=== PATIENT | female | born 1970 | race Caucasian/White ===

== ENCOUNTER 2016-12-11 12:07 | Inpatient (IN) | payer OTHER ==
[2016-12-11 14:04] VITALS: BMI 27.4
--- NOTE | 2016-12-11 14:55 | HP ---
COWS - Scale Resting Pulse: 0= [place] 80 or Below Sweatin= Chills/Flushing Restless Observation: 1= Difficult to Sit Still Pupil Size: 1= Pupils >than Normal Bone or Joint Aches: 2= Severe Diffuse Aches Runny Nose/ Eye Tearin= Nasal Congestion GI Upset > 30mins: 1= Stomach Cramp Tremor Observation: 1= Tremor [place], Not Seen Yawning Observation: 0= None Anxiety or Irritability: 2=Irritable/Anxious Goose Flesh Skin: 0=Smooth Skin COWS Score: 10 Admission ROS S - HPI Chief Complaint: I need help to stop using heroin Allergies/Adverse Reactions: Allergies Allergy/AdvReac Type Severity Reaction Status Date / Time ketorolac tromethamine Allergy Itching Verified 08/07/16 16:55 [From Toradol] celecoxib [From Celebrex] AdvReac Vomiting Verified 08/07/16 17:14 History of Present Illness: 46 y/o f pt with a h/o heroin dep. seeking detox. Exam Limitations: No Limitations - Ebola screening Have you traveled outside of the country in the last 21 days: No Have you had contact with anyone from an Ebola affected area: No Have you been sick,other than usual withdrawal symptoms: No Do you have a fever: No - Review of Systems Constitutional: No Symptoms Reported EENT: reports: Other (needs corrective lenses) Respiratory: reports: No Symptoms reported Cardiac: reports: No Symptoms Reported GI: reports: Nausea, Indigestion, Abdominal cramping : reports: No Symptoms Reported Musculoskeletal: reports: Back Pain Integumentary: reports: No Symptoms Reported Neuro: reports: No Symptoms reported Endocrine: reports: Other (told she had thyroid disease ? hypothyroidism) Hematology: reports: No Symptoms Reported Psychiatric: reports: Agitated, Anxious, Depressed Other Systems: Reviewed and Negative Patient History - Patient Medical History Hx Anemia: No Hx Asthma: No Hx Chronic Obstructive Pulmonary Disease (COPD): No Hx Cancer: No Hx Cardiac Disorders: No Hx Congestive Heart Failure: No Hx Hypertension: No Hx Hypercholesterolemia: No Hx Pacemaker: No HX Cerebrovascular Accident: No Hx Seizures: No Hx Dementia: No Hx Diabetes: No Hx Gastrointestinal Disorders: Yes (GERD) Hx Liver Disease: No Hx Genitourinary Disorders: No Hx Sexually Transmitted Disorders: No Hx Renal Disease (ESRD): No Hx Thyroid Disease: No Hx Human Immunodeficiency Virus (HIV): No (LAST 05/11) Hx Hepatitis C: Yes Hx Depression: Yes Hx Suicide Attempt: No Hx Bipolar Disorder: Yes Hx Schizophrenia: No Other Medical History: h/o lbp/spasms - Patient Surgical History Past Surgical History: Yes Hx Neurologic Surgery: No Hx Cataract Extraction: No Hx Cardiac Surgery: No Hx Lung Surgery: No Hx Breast Surgery: No Hx Breast Biopsy: No Hx Abdominal Surgery: No Hx Appendectomy: No Hx Cholecystectomy: No Hx Genitourinary Surgery: No Hx Section: Yes (x2) Hx Orthopedic Surgery: Yes (rt wrist CTS-surgery ) Other Surgical History: ABSCESS OF RIGHT THUMB AND RIGHT 5TH FINGER IN 2013-mrsa Anesthesia Reaction: No - PPD History Previous Implant?: Yes Documented Results: Negative w/o proof Implanted On Prior [facility] Admission?: No Date: 08/09/16 Results: 0mm PPD to be Administered?: Yes - Reproductive History Patient is a Female of Child Bearing Age (11 -55 yrs old): No Last Menstrual Period: 12/04/16 Patient : No - Smoking Cessation Smoking history: Current every day smoker Have you smoked in the past 12 months: Yes Aproximately how many cigarettes per day: 10 Cigars Per Day: 0 Hx Chewing Tobacco Use: No Initiated information on smoking cessation: Yes 'Breaking Loose' booklet given: 12/11/16 - Substance & Tx. History Hx Alcohol Use: No Hx Substance Use: Yes Substance Use Type: Heroin, Tranquilizers - Substances Abused Heroin Route: Inhalation Frequency: Daily Amount used: 3-10 bags /d Age of first use: 44 Date of Last Use: 12/10/16 Cocaine Route: Inhalation Frequency: 1-3 times last 30 days Amount used: 1 line Age of first use: 44 Date of Last Use: 12/09/16 Family Disease History - Family Disease History Family History: Denies Admission Physical Exam BHS - Vital Signs Vital Signs: Vital Signs - 24 hr 12/11/16 14:02 Temperature 97.6 F Pulse Rate 69 Respiratory 18 Rate Blood Pressure 107/78 46 y/o f pt wn/wd in nad with a h/o back spasms aox3, ambulating - Physical General Appearance: Yes: Obese, Irritable, Anxious HEENTM: Yes: EOMI, Hearing grossly Normal, Normal ENT Inspection, Normocephalic , Normal Voice, LIZETH Respiratory: Yes: Chest Non-Tender, Lungs Clear, Normal Breath Sounds, No Respiratory Distress Breast: Yes: Breast Exam Deferred Cardiology: Yes: Regular Rhythm, Regular Rate, S1, S2 Abdominal: Yes: Non Tender, Soft, Increased Bowel Sounds, Protuberent, Surgical Scar (well healed c-s scars) Genitourinary: Yes: Within Normal Limits Back: Yes: Decreased Range of Motion Musculoskeletal: Yes: Back pain, Muscle Pain Extremities: Yes: Other (well healed rt wrist and rt thumb scars) Neurological: Yes: clinical dermatologist II-XII NML intact, Fully Oriented, Alert, Motor Strength 5/5 Integumentary: Yes: Moist Lymphatic: Yes: Within Normal Limits - Diagnostic (1) Cocaine abuse Status: Chronic (2) Nicotine dependence Current Visit: Yes Status: Chronic Qualifiers: Nicotine product type: cigarettes Substance use status: uncomplicated Qualified Code(s): F17.210 - Nicotine dependence, cigarettes, uncomplicated (3) Opioid dependence with withdrawal Current Visit: Yes Status: Chronic (4) Weight loss Current Visit: Yes Status: Chronic (5) Bipolar II disorder Current Visit: Yes Status: Chronic (6) GERD (gastroesophageal reflux disease) Current Visit: Yes Status: Chronic Qualifiers: Esophagitis presence: without esophagitis Qualified Code(s): K21.9 - Gastro-esophageal reflux disease without esophagitis (7) Low back pain Current Visit: Yes Status: Chronic Qualifiers: Chronicity: chronic Back pain laterality: right Sciatica presence: with sciatica Sciatica laterality: sciatica of right side Qualified Code(s): M54.41 - Lumbago with sciatica, right side Cleared for Admission [facility] - Detox or Rehab [facility] Level of Care: Medically Managed Detox Regimen/Protocol: Methadone [facility] Breath Alcohol Content Breath Alcohol Content: 0 Urine Pregancy Test - Result Urine Test Results: Negative- NO Line Present Urine Drug Screen - Results Drug Screen Negative: No Urine Drug Screen Results: SAVANA-Cocaine, OPI-Opiates, BZO-Benzodiazepines, OXY- Oxycodone
[2016-12-11] MEDS ORDERED: diphenhydrAMINE HCL 50 MG CAPSULE PO PRN (15:19)
[2016-12-11] MEDS ORDERED: P-EPHED 60MG/TRIPROLIDI 2.5MG TABLET PO PRN (15:19)
[2016-12-11] MEDS ORDERED: MAG HYDROX/AL HYDROX/SIMETH 30 ML UNIT-DOSE CUP PO PRN (15:19)
[2016-12-11] MEDS ORDERED: MAGNESIUM HYDROX 2400MG/30ML ORAL SUSPENSION 30 ML CUP PO PRN (15:19)
[2016-12-11] MEDS ORDERED: guaiFENesin/D-METHORPHAN HB 10 ML UNIT-DOSE CUPS PO PRN (15:19)
[2016-12-11] MEDS ORDERED: ACETAMINOPHEN 325 MG TABLET (FP) PO PRN (15:19)
[2016-12-11] MEDS ORDERED: MENTHOL/PHENOL 1 EACH UD MM PRN (15:19)
[2016-12-11] MEDS ORDERED: NICOTINE POLACRILEX 4 MG GUM BC PRN (15:19)
[2016-12-11] MEDS ORDERED: IBUPROFEN 400 MG TABLET (FP) PO PRN (15:19)
[2016-12-11] MEDS ORDERED: LOPERAMIDE HCL 2 MG CAPSULE PO PRN (15:19)
[2016-12-11] MEDS ORDERED: MAGNESIUM CITRATE 300 ML BOTTLE PO PRN (15:19)
[2016-12-11] MEDS ORDERED: METHADONE HCL 10 MG TABLET (FOR DETOX USE ONLY) PO ONE ×2 (15:56→23:00)
[2016-12-11] MEDS: diazePAM 5 MG TABLET PO PRN ×2 (17:14→22:33)
[2016-12-11 19:25] LABS: URINE APPEARANCE SLCLOUDY; URINE BILIRUBIN NEGATIVE (NEGATIVE); URINE BLOOD NEGATIVE (NEGATIVE); URINE COLOR YELLOW; URINE GLUCOSE (UA) NEGATIVE (NEGATIVE); URINE KETONE NEGATIVE (NEGATIVE); URINE LEUK ESTERASE NEGATIVE (NEGATIVE); URINE NITRITE NEGATIVE (NEGATIVE); URINE PROTEIN NEGATIVE (NEGATIVE); URINE UROBILINOGEN NEGATIVE E.U./dl (0.2-1.0)
[2016-12-11] MEDS: THIAMINE HCL 100 MG TABLET (FP) PO SCH (22:29)
[2016-12-11] MEDS: CYCLOBENZAPRINE HCL 10 MG TABLET (FP) PO PRN (22:31)
--- NOTE | 2016-12-12 07:48 | CONSULT ---
[facility] Psychiatric Consult - Data Date of interview: 12/12/16 Admission source: [facility] Identifying data: This is 46 years old male with history of Bipolae Disorder, intoxicated with: Opioids, Cocaine, Xanax and Nicotine Substance Abuse History: Smoking history: Current every day smoker. Have you smoked in the past 12 months: Yes. Aproximately how many cigarettes per day: 10. Cigars Per Day: 0. Hx Chewing Tobacco Use: No. Initiated information on smoking cessation: Yes. 'Breaking Loose' booklet given: 12/11/16. - Substance & Tx. History. Hx Alcohol Use: No. Hx Substance Use: Yes. Substance Use Type : Heroin, Tranquilizers. - Substances Abused. Heroin. Route: Inhalation. Frequency: Daily. Amount used: 3-10 bags /d. Age of first use: 44. Date of Last Use: 12/10/16. Cocaine. Route: Inhalation. Frequency: 1-3 times last 30 days. Amount used: 1 line. Age of first use: 44. Date of Last Use: Medical History: GERD, LBP, Weight loss history, Both Knees arthritis history, Weight loss history Psychiatric History: Patient reports history of Bipolar Disordedr, PTSD, with no psychiatric hospitalization , reports currently stable on: Lamictal 100mg po bid. Prozac 20mg poqd. Gabapentine 400mg po tid Physical/Sexual Abuse/Trauma History: Denies Additional Comment: Lamictal 100mg po bid. Prozac 20mg poqd. Gabapentine 400mg po tid Mental Status Exam - Mental Status Exam Alert and Oriented to: Person Cognitive Function: Fair Patient Appearance: Unkempt Mood: Sad Affect: Flat Patient Behavior: Sedated Speech Pattern: Delayed Voice Loudness: Mildly Soft/Quiet Thought Process: Circumstantial, Goal Oriented Thought Disorder: Being Controlled Hallucinations: Denies Suicidal Ideation: Denies Homicidal Ideation: Denies Insight/Judgement: Fair Sleep: Difficulty falling asleep Appetite: Weight loss Muscle strength/Tone: Mild Hypotonicity Gait/Station: Shuffling Additional Comments: Lamictal 100mg po bid. Prozac 20mg poqd. Gabapentine 400mg po tid Psychiatric Findings - Problem List ([place] 1, 2,3) (1) Cocaine abuse Current Visit: Yes Status: Chronic (2) Nicotine dependence Current Visit: Yes Status: Chronic Qualifiers: Nicotine product type: cigarettes Substance use status: uncomplicated Qualified Code(s): F17.210 - Nicotine dependence, cigarettes, uncomplicated (3) Opioid dependence with withdrawal Current Visit: Yes Status: Chronic (4) Benzodiazepine dependence Current Visit: No Status: Acute (5) Substance induced mood disorder Current Visit: No Status: Acute (6) Bipolar disorder Current Visit: No Status: Chronic (7) Opioid dependence Current Visit: No Status: Chronic (8) PTSD (post-traumatic stress disorder) Current Visit: No Status: Chronic - Initial Treatment Plan Initial Treatment Plan: Lamictal 100mg po bid. Prozac 20mg poqd. Gabapentine 400mg po tid
[2016-12-12] MEDS ORDERED: GABAPENTIN 400 MG CAPSULE (FP) PO SCH (08:00)
[2016-12-12 09:33] LABS: HIV 1 & 2 AB NEGATIVE; HIV 1 AGp24 NEGATIVE
[2016-12-12] MEDS ORDERED: METHADONE HCL 10 MG TABLET (FOR DETOX USE ONLY) PO ONE (10:00)
[2016-12-12] MEDS: CYCLOBENZAPRINE HCL 10 MG TABLET (FP) PO PRN (10:11)
[2016-12-12] MEDS: PRENATAL VITAMINS W/ FOLIC ACID TABLET (FP) PO SCH (10:11)
[2016-12-12] MEDS: diazePAM 5 MG TABLET PO PRN ×3 (10:11→22:28)
[2016-12-12] MEDS: FLUoxetine HCL 20 MG CAPSULE (FP) PO SCH (10:11)
[2016-12-12] MEDS: PANTOPRAZOLE 40 MG TABLET (FP) PO SCH (10:11)
[2016-12-12] MEDS: NICOTINE 21 MG/24 HOURS TOPICAL PATCH TD SCH (10:12)
[2016-12-12] MEDS: lamoTRIgine 100 MG TABLET (FP) PO SCH ×2 (10:16→22:26)
[2016-12-12 10:18] LABS: MCH 30.6 pg (25.7-33.7); MCHC 32.8 g/dl (32.0-36.0); MEAN CELL VOLUME 93.5 fl (80-96); MEAN PLT VOLUME 9.6 fl (7.5-11.1); PLATELET COUNT 246 K/MM3 (134-434); WHITE BLOOD COUNT 6.8 K/mm3 (4.0-10.0)
[2016-12-12 10:30] LABS: ALBUMIN 3.7 g/dl (3.4-5.0); ALK PHOS 100 U/L (45-117); ANION GAP 7 (8-16); BILIRUBIN,TOTAL 0.3 mg/dL (0.2-1.0); CALCIUM 8.7 mg/dL (8.5-10.1); CO2 28 mmol/L (21-32); CREATININE 0.8 mg/dL (0.55-1.02); GLUCOSE,RANDOM 64 mg/dL (74-106); SGOT/AST 51 U/L (15-37); SGPT/ALT 31 U/L (12-78); TOT PROT 7.4 g/dl (6.4-8.2)
--- NOTE | 2016-12-12 12:28 | EKG ---
Test Reason : Blood Pressure : / mmHG Vent. Rate : 073 BPM Atrial Rate : 073 BPM P-R Int : 154 ms QRS Dur : 076 ms QT Int : 390 ms P-R-T Axes : 062 063 044 degrees QTc Int : 429 ms NORMAL SINUS RHYTHM POSSIBLE LEFT ATRIAL ENLARGEMENT BORDERLINE ECG NO PREVIOUS ECGS AVAILABLE Confirmed by RENUKA RODRIGUEZ, KARLEE ([id number]) on 12/12/2016 12:28:15 PM Referred By: Confirmed By:KARLEE GRAYSON MD
--- NOTE | 2016-12-12 14:08 | PN ---
BHS COWS - Scale Resting Pulse: 1= [place] 81-100 Sweatin=Flushed/Facial Moisture Restless Observation: 1= Difficult to Sit Still Pupil Size: 1= Pupils >than Normal Bone or Joint Aches: 2= Severe Diffuse Aches Runny Nose/ Eye Tearin= Nasal Congestion GI Upset > 30mins: 2= Nausea/Diarrhea Tremor Observation of Outstretched Hands: 1= Tremor [place], Not Seen Yawning Observation: 0= None Anxiety or Irritability: 2=Irritable/Anxious Goose Flesh Skin: 0=Smooth Skin COWS Score: 13 BHS Progress Note (SOAP) Subjective: interrupted sleep, sweats, diarrhea Objective: 12/12/16 14:07 Vital Signs Temperature 98.4 F 12/12/16 13:41 Pulse Rate 77 12/12/16 13:41 Respiratory Rate 16 12/12/16 13:41 Blood Pressure 113/76 12/12/16 13:41 O2 Sat by Pulse Oximetry (%) Laboratory Tests 12/11/16 12/11/16 12/12/16 13:00 19:00 06:00 WBC 6.8 RBC 4.34 Hgb 13.3 Hct 40.6 MCV 93.5 MCHC 32.8 RDW 15.0 Plt Count 246 MPV 9.6 Sodium Potassium Chloride Carbon Dioxide Anion Gap BUN Creatinine Creat Clearance w eGFR Random Glucose Calcium Total Bilirubin AST ALT Alkaline Phosphatase Total Protein Albumin Urine Color Yellow Urine Appearance Slcloudy Urine pH 5.0 Ur Specific [place] 1.017 Urine Protein Negative Urine Glucose (UA) Negative Urine Ketones Negative Urine Blood Negative Urine Nitrite Negative Urine Bilirubin Negative Urine Urobilinogen Negative Ur Leukocyte Esterase Negative RPR Titer HIV 1&2 Antibody Screen Negative HIV P24 Antigen Negative 12/12/16 12/12/16 06:00 06:00 WBC RBC Hgb Hct MCV MCHC RDW Plt Count MPV Sodium 138 Potassium 4.4 Chloride 103 Carbon Dioxide 28 Anion Gap 7 L BUN 11 D Creatinine 0.8 Creat Clearance w eGFR > 60 Random Glucose 64 L D Calcium 8.7 Total Bilirubin 0.3 AST 51 H D ALT 31 D Alkaline Phosphatase 100 D Total Protein 7.4 Albumin 3.7 Urine Color Urine Appearance Urine pH Ur Specific Drew Urine Protein Urine Glucose (UA) Urine Ketones Urine Blood Urine Nitrite Urine Bilirubin Urine Urobilinogen Ur Leukocyte Esterase RPR Titer Nonreactive HIV 1&2 Antibody Screen HIV P24 Antigen pt aox3 in nad ambulating Assessment: 12/12/16 14:08 withdrawlal sx's Plan: cont. detox increase fluids imodium prn.
[2016-12-12] MEDS: THIAMINE HCL 100 MG TABLET (FP) PO SCH (22:26)
[2016-12-13] MEDS: diazePAM 5 MG TABLET PO PRN ×3 (09:37→22:25)
[2016-12-13] MEDS ORDERED: METHADONE HCL 5 MG TABLET (FOR DETOX USE ONLY) PO ONE (10:00)
[2016-12-13] MEDS: PRENATAL VITAMINS W/ FOLIC ACID TABLET (FP) PO SCH (10:28)
[2016-12-13] MEDS: NICOTINE 21 MG/24 HOURS TOPICAL PATCH TD SCH (10:29)
[2016-12-13] MEDS: FLUoxetine HCL 20 MG CAPSULE (FP) PO SCH (10:29)
[2016-12-13] MEDS: PANTOPRAZOLE 40 MG TABLET (FP) PO SCH (10:29)
[2016-12-13] MEDS: lamoTRIgine 100 MG TABLET (FP) PO SCH ×2 (11:31→22:25)
--- NOTE | 2016-12-13 12:03 | PN ---
BHS COWS - Scale Resting Pulse: 0= [place] 80 or Below Sweatin=Flushed/Facial Moisture Restless Observation: 1= Difficult to Sit Still Pupil Size: 0= Normal to Room Light Bone or Joint Aches: 2= Severe Diffuse Aches Runny Nose/ Eye Tearin= Nasal Congestion GI Upset > 30mins: 0= None Tremor Observation of Outstretched Hands: 2= Slight Tremor Visible Yawning Observation: 2= >3x During Session Anxiety or Irritability: 2=Irritable/Anxious Goose Flesh Skin: 0=Smooth Skin COWS Score: 12 S Progress Note (SOAP) Subjective: chronic low back sweats interrupted slept tired irritable Objective: 12/13/16 12:02 Vital Signs Temperature 97.5 F L 12/13/16 09:19 Pulse Rate 71 12/13/16 09:19 Respiratory Rate 18 12/13/16 09:19 Blood Pressure 126/82 12/13/16 09:19 O2 Sat by Pulse Oximetry (%) Laboratory Tests 12/11/16 12/11/16 12/12/16 13:00 19:00 06:00 WBC 6.8 RBC 4.34 Hgb 13.3 Hct 40.6 MCV 93.5 MCHC 32.8 RDW 15.0 Plt Count 246 MPV 9.6 Sodium Potassium Chloride Carbon Dioxide Anion Gap BUN Creatinine Creat Clearance w eGFR Random Glucose Calcium Total Bilirubin AST ALT Alkaline Phosphatase Total Protein Albumin Urine Color Yellow Urine Appearance Slcloudy Urine pH 5.0 Ur Specific [place] 1.017 Urine Protein Negative Urine Glucose (UA) Negative Urine Ketones Negative Urine Blood Negative Urine Nitrite Negative Urine Bilirubin Negative Urine Urobilinogen Negative Ur Leukocyte Esterase Negative RPR Titer HIV 1&2 Antibody Screen Negative HIV P24 Antigen Negative 12/12/16 12/12/16 06:00 06:00 WBC RBC Hgb Hct MCV MCHC RDW Plt Count MPV Sodium 138 Potassium 4.4 Chloride 103 Carbon Dioxide 28 Anion Gap 7 L BUN 11 D Creatinine 0.8 Creat Clearance w eGFR > 60 Random Glucose 64 L D Calcium 8.7 Total Bilirubin 0.3 AST 51 H D ALT 31 D Alkaline Phosphatase 100 D Total Protein 7.4 Albumin 3.7 Urine Color Urine Appearance Urine pH Ur Specific [place] Urine Protein Urine Glucose (UA) Urine Ketones Urine Blood Urine Nitrite Urine Bilirubin Urine Urobilinogen Ur Leukocyte Esterase RPR Titer Nonreactive HIV 1&2 Antibody Screen HIV P24 Antigen awake/alert ambulating no acute distress Assessment: 12/13/16 12:02 withdrawal sx Plan: continue detox increase fluids lidocaine patch tylenol prn
[2016-12-13] MEDS: LIDOCAINE 5% TOPICAL PATCH TP SCH (12:47)
[2016-12-13] MEDS: THIAMINE HCL 100 MG TABLET (FP) PO SCH (22:25)
[2016-12-14] MEDS: diazePAM 5 MG TABLET PO PRN (06:47)
[2016-12-14] MEDS ORDERED: METHADONE HCL 5 MG TABLET (FOR DETOX USE ONLY) PO ONE (10:00)
[2016-12-14] MEDS: PRENATAL VITAMINS W/ FOLIC ACID TABLET (FP) PO SCH (10:11)
[2016-12-14] MEDS: hydrOXYzine PAMOATE 25 MG CAPSULE (FP) PO PRN ×2 (10:12→18:02)
[2016-12-14] MEDS: NICOTINE 21 MG/24 HOURS TOPICAL PATCH TD SCH (10:12)
[2016-12-14] MEDS: PANTOPRAZOLE 40 MG TABLET (FP) PO SCH (10:12)
[2016-12-14] MEDS: lamoTRIgine 100 MG TABLET (FP) PO SCH ×2 (10:12→22:19)
[2016-12-14] MEDS: FLUoxetine HCL 20 MG CAPSULE (FP) PO SCH (10:12)
--- NOTE | 2016-12-14 10:46 | PN ---
BHS Progress Note (SOAP) Subjective: CO POOR SLEEP SHAKINESS GI UPSET ACHES Objective: 12/14/16 10:45 Laboratory Tests 12/11/16 12/11/16 12/12/16 13:00 19:00 06:00 WBC 6.8 RBC 4.34 Hgb 13.3 Hct 40.6 MCV 93.5 MCHC 32.8 RDW 15.0 Plt Count 246 MPV 9.6 Sodium Potassium Chloride Carbon Dioxide Anion Gap BUN Creatinine Creat Clearance w eGFR Random Glucose Calcium Total Bilirubin AST ALT Alkaline Phosphatase Total Protein Albumin Urine Color Yellow Urine Appearance Slcloudy Urine pH 5.0 Ur Specific [place] 1.017 Urine Protein Negative Urine Glucose (UA) Negative Urine Ketones Negative Urine Blood Negative Urine Nitrite Negative Urine Bilirubin Negative Urine Urobilinogen Negative Ur Leukocyte Esterase Negative RPR Titer HIV 1&2 Antibody Screen Negative HIV P24 Antigen Negative 12/12/16 12/12/16 06:00 06:00 WBC RBC Hgb Hct MCV MCHC RDW Plt Count MPV Sodium 138 Potassium 4.4 Chloride 103 Carbon Dioxide 28 Anion Gap 7 L BUN 11 D Creatinine 0.8 Creat Clearance w eGFR > 60 Random Glucose 64 L D Calcium 8.7 Total Bilirubin 0.3 AST 51 H D ALT 31 D Alkaline Phosphatase 100 D Total Protein 7.4 Albumin 3.7 Urine Color Urine Appearance Urine pH Ur Specific [place] Urine Protein Urine Glucose (UA) Urine Ketones Urine Blood Urine Nitrite Urine Bilirubin Urine Urobilinogen Ur Leukocyte Esterase RPR Titer Nonreactive HIV 1&2 Antibody Screen HIV P24 Antigen Vital Signs - 24 hr 12/13/16 12/13/16 12/13/16 13:54 18:22 21:52 Temperature 98.1 F 97.6 F 97.7 F Pulse Rate 77 72 79 Respiratory 18 18 18 Rate Blood Pressure 110/70 111/65 105/69 12/14/16 12/14/16 12/14/16 00:30 03:30 06:00 Temperature 97.5 F L Pulse Rate 59 L Respiratory 18 18 18 Rate Blood Pressure 111/74 12/14/16 10:19 Temperature 97.7 F Pulse Rate 79 Respiratory 16 Rate Blood Pressure 125/71 Assessment: 12/14/16 10:45 ONGOING WITHDRAWAL Plan: CONTINUE DETOX PROTOCOL
[2016-12-14] MEDS: LIDOCAINE 5% TOPICAL PATCH TP SCH (10:53)
[2016-12-14] MEDS: THIAMINE HCL 100 MG TABLET (FP) PO SCH (22:19)
[2016-12-15] MEDS ORDERED: METHADONE HCL 10 MG TABLET (FOR DETOX USE ONLY) PO ONE (10:00)
--- NOTE | 2016-12-15 10:30 | PN ---
S Progress Note (SOAP) Subjective: ALERT,IRRITABLE,ANXIOUS,INTERRUPTED SLEEP, Objective: 12/15/16 10:29 Vital Signs Temperature 97.2 F L 12/15/16 09:48 Pulse Rate 83 12/15/16 09:48 Respiratory Rate 18 12/15/16 09:48 Blood Pressure 111/68 12/15/16 09:48 O2 Sat by Pulse Oximetry (%) Assessment: 12/15/16 10:29 WITHDRAWAL SYMPTOM Plan: CONTINUE DETOX,DISCHARGE IN AM
[2016-12-15] MEDS: hydrOXYzine PAMOATE 25 MG CAPSULE (FP) PO PRN ×2 (10:42→19:58)
[2016-12-15] MEDS: PRENATAL VITAMINS W/ FOLIC ACID TABLET (FP) PO SCH (10:42)
[2016-12-15] MEDS: NICOTINE 21 MG/24 HOURS TOPICAL PATCH TD SCH (10:42)
[2016-12-15] MEDS: FLUoxetine HCL 20 MG CAPSULE (FP) PO SCH (10:42)
[2016-12-15] MEDS: PANTOPRAZOLE 40 MG TABLET (FP) PO SCH (10:42)
[2016-12-15] MEDS: lamoTRIgine 100 MG TABLET (FP) PO SCH ×2 (10:42→22:24)
[2016-12-15] MEDS: LIDOCAINE 5% TOPICAL PATCH TP SCH (12:14)
[2016-12-15] MEDS ORDERED: ALBUTEROL SO4 6.7 GM HFA INHALER IH ONE (19:55)
[2016-12-15] MEDS: THIAMINE HCL 100 MG TABLET (FP) PO SCH (22:24)
[2016-12-16] MEDS ORDERED: METHADONE HCL 5 MG TABLET (FOR DETOX USE ONLY) PO ONE (06:00)
[2016-12-16 06:53] VITALS: BP 124/67; PULSE 61; TEMP 97.1
--- NOTE | 2016-12-16 09:00 | PN ---
S Progress Note (SOAP) Subjective: alert,no complaint Objective: 12/16/16 08:59 Vital Signs Temperature 97.1 F L 12/16/16 06:52 Pulse Rate 61 12/16/16 06:52 Respiratory Rate 18 12/16/16 06:52 Blood Pressure 124/67 12/16/16 06:52 O2 Sat by Pulse Oximetry (%) Assessment: 12/16/16 08:59 detox completed,no withdrawal symptom Plan: discharge today,follow up with after care program as arrangement
--- NOTE | 2016-12-16 09:04 | DS ---
[facility] Detox Discharge Summary Admission Date: 12/11/16 Discharge Date: 12/16/16 - History Present History: Opioid Dependence, Sedative Dependence Additional Comments: follow up with after [facility] program as arrangement and pmd for medical problem and Pertinent Past History: nicotine dependence gerd bipolar 2 disorder low back pain weight loss - Physical Exam Results Vital Signs: Vital Signs Temperature 97.1 F L 12/16/16 06:52 Pulse Rate 61 12/16/16 06:52 Respiratory Rate 18 12/16/16 06:52 Blood Pressure 124/67 12/16/16 06:52 O2 Sat by Pulse Oximetry (%) Pertinent Admission Physical Exam Findings: withdrawal symptom - Treatment Hospital Course: Detox Protocol Followed, Detoxed Safely, Responded well, Discharged Condition Good Patient has Accepted a Rehab Referral to: declined - Medication Discharge Medications: Ambulatory Orders Diazepam [Valium] 5 mg PO HS 12/11/16 Fluoxetine HCl [Prozac -] 20 mg PO DAILY 12/11/16 Gabapentin [Neurontin -] 400 mg PO Q8H 12/11/16 Lamotrigine [Lamictal -] 100 mg PO BID 12/11/16 Fluoxetine HCl [Prozac -] 20 mg PO DAILY #30 capsule 12/12/16 Lamotrigine [LaMICtal -] 100 mg PO BID #60 tablet 12/12/16 - Diagnosis (1) Bipolar II disorder Current Visit: Yes Status: Chronic (2) Cocaine abuse Current Visit: Yes Status: Chronic (3) GERD (gastroesophageal reflux disease) Current Visit: Yes Status: Chronic Qualifiers: Esophagitis presence: without esophagitis Qualified Code(s): K21.9 - Gastro-esophageal reflux disease without esophagitis (4) Low back pain Current Visit: Yes Status: Chronic Qualifiers: Chronicity: chronic Back pain laterality: right Sciatica presence: with sciatica Sciatica laterality: sciatica of right side Qualified Code(s): M54.41 - Lumbago with sciatica, right side (5) Nicotine dependence Current Visit: Yes Status: Chronic Qualifiers: Nicotine product type: cigarettes Substance use status: uncomplicated Qualified Code(s): F17.210 - Nicotine dependence, cigarettes, uncomplicated (6) Opioid dependence with withdrawal Current Visit: Yes Status: Chronic (7) Weight loss Current Visit: Yes Status: Chronic (8) Arthritis of both knees Current Visit: No Status: Chronic (9) Bipolar disorder Current Visit: No Status: Chronic - AMA Did Patient Leave Against Medical Advice: No
[2016-12-16] MEDS: FLUoxetine HCL 20 MG CAPSULE (FP) PO SCH (09:14)
[2016-12-16] MEDS: lamoTRIgine 100 MG TABLET (FP) PO SCH (09:14)
[2016-12-16] MEDS: PRENATAL VITAMINS W/ FOLIC ACID TABLET (FP) PO SCH (09:14)
[2016-12-16] MEDS: PANTOPRAZOLE 40 MG TABLET (FP) PO SCH (09:14)
== END 2016-12-16 09:14 | disposition home or self-care (01) | DRG 773 ==
LOC: YASAS 12:07 → Y6N 15:53
PROVIDERS: ADMIT Internal Medicine Addiction Medicine; ATTEND Internal Medicine Addiction Medicine
PROC: HZ2ZZZZ Detoxification Services for Substance Abuse Treatment (ICD-10-PCS; principal; 2016-12-16)
DX: F11.23 Opioid dependence with withdrawal (principal); F13.20 Sedative, hypnotic or anxiolytic dependence, uncomplicated; F17.210 Nicotine dependence, cigarettes, uncomplicated; F14.10 Cocaine abuse, uncomplicated; F19.24 Other psychoactive substance dependence with psychoactive substance-induced mood disorder; F31.81 Bipolar II disorder; F43.10 Post-traumatic stress disorder, unspecified; M54.41 Lumbago with sciatica, right side; M13.862 Other specified arthritis, left knee; M13.861 Other specified arthritis, right knee; R63.4 Abnormal weight loss; Z68.27 Body mass index [BMI] 27.0-27.9, adult
CPT/HCPCS: 36415; 80053; 81003; 85027; 86593; 87389; 93005; 93010